=== PATIENT | female | born 1960 | race Caucasian/White ===

== ENCOUNTER 2024-05-31 19:12 | Emergency (ER) | payer MEDICARE, OTHER, SELFPAY ==
[2024-05-31] VITALS (7 sets, daily range): BP systolic 152–183; BP diastolic 92–114; PULSE 87–104; RESP 15–20; TEMP 36.6–37.2; O2SAT 95–99
--- NOTE | ~2024-05-31 | XR_ITS ---
CHEST RADIOGRAPH, PA AND LATERAL CLINICAL HISTORY: SOB . COMPARISON: None available TECHNIQUE: PA and lateral views of the chest. FINDINGS The cardiomediastinal silhouette is unremarkable. The lungs are clear. Visualized osseous structures and soft tissues are unremarkable. IMPRESSION: No focal infiltrate or effusion. Reviewed, dictated and finalized at location A. TING ENGINEER
[2024-05-31 19:58] LABS: Strep Group A RT-PCR NOT DETECTED (Negative)
[2024-05-31 20:10] LABS: Influenza A QL RT-PCR Negative (Negative); Influenza B QL RT-PCR Negative (Negative); RSV RNA, RT-PCR Negative (Negative); SARS-CoV-2 RNA PCR Negative (Negative)
--- NOTE | 2024-05-31 20:55 | ED.SOB ---
HPI - SOB/Dyspnea General Chief Complaint: Shortness of Breath/Dyspnea Stated Complaint: breathing problems Time Seen by Provider: 05/31/24 20:23 History of Present Illness HPI Narrative: 64-year-old with no past medical history presenting to the emergency room with chief complaint of 3-4 days of upper respiratory infection symptoms. She states she started having a sinus congestion that slowly migrated down into her throat and she describes a initial pain with swallowing. She now felt a little short of breath earlier today. Endorses a low-grade fever at home x1 several days ago. Does not take medications but has history of previous upper respiratory infections and bronchitis. Patient states this feels like bronchitis to her. She denies any chest pain shortness a breath at rest. She otherwise appears well and is afebrile here. No nausea or vomiting. No fever, chills, headache, vision changes, difficulty with swallowing. No abdominal pain or discomfort. No recent illnesses or injuries. No new medications. Related Data Allergies Allergy/AdvReac Type Severity Reaction Status Date / Time amoxicillin Allergy Rash Verified 05/31/24 19:14 Review of Systems Review of Systems: As reviewed above in HPI Exam Narrative: GENERAL: [Well-appearing, well-nourished, and in no acute distress.] HEAD: [Normocephalic, atraumatic.] EYES: [PERRLA and EOMI.] ENT: Nares clear, no rhinorrhea or epistaxis. Mucous membranes moist. No posterior or pharyngeal erythema or exudates. Uvula is midline. No tonsillar inflammation. No difficulty swallowing, no lymphadenopathy. NECK: Supple. CHEST: [Clear to auscultation. No respiratory distress.] HEART: [Regular rate and rhythm]. No murmur heard. [Normal peripheral pulses.] ABDOMEN: [Soft, nondistended], [nontender], [No rigidity or guarding] EXTREMITIES: Normal range of motion. [No edema.] SKIN: Warm, dry, no rash. NEURO: [No focal deficits]. Alert and oriented [x3.] PSYCH: [Normal mood and affect.] Course Vital Signs Vital signs: Vital Signs Temperature 36.6 C 05/31/24 19:17 Pulse Rate 104 H 05/31/24 19:17 Respiratory Rate 18 05/31/24 19:17 Blood Pressure 183/114 H 05/31/24 19:17 Pulse Oximetry 97 05/31/24 19:17 Temperature 36.6 C 05/31/24 19:17 Pulse Rate 98 05/31/24 21:01 Respiratory Rate 19 05/31/24 21:01 Blood Pressure 152/92 H 05/31/24 21:01 Pulse Oximetry 99 05/31/24 21:03 Oxygen Delivery Room Air 05/31/24 21:03 MDM - SOB/Dyspnea MDM Narrative Medical decision making narrative: 64-year-old female with no past medical history presenting with 3 days of URI symptoms. She was at another facility earlier today and had COVID fluid RSV swabs which were negative. She presents today with a feeling of sinus congestion and some sore throat. Initially had difficulty swallowing episode that resolved at home. Otherwise appears well not in acute distress. Saturating well on room air. 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 She will take antibiotics if absolutely needed. She endorses a fever at home 1 time several days ago but is afebrile now. Otherwise conversant full sentences, has no posterior erythema or inflammation of the tonsils. Slightly tachycardic on triage vitals. Patient is slightly hypertensive but likely secondary to chronic hypertension as she does not seek medical attention or take medications. Likely unrelated to presentation presently. COVID fluid RSV swabs were obtained negative. Two-view chest x-ray is ordered. Differential diagnosis includes upper respiratory infection versus bacterial versus viral bronchitis versus less likely pharyngitis, epiglottitis. Patient's chest x-rays independent reviewed by myself and interpreted by radiology. I do not appreciate any kind of consolidation, pneumothorax or any hilar lesions. Radiology shows no acute cardiopulmonary process. Patient's symptomatology is likely secondary to bronchitis. Patient states that she has had previous good response to the antibiotic therapy and is requesting this at this time. She was given a dose of azithromycin 500 mg here and sent home with a 250 mg dose for the next 3 days. Patient will follow-up with her primary care provider. Repeat blood pressure and vital signs were all improved. Patient is stable for discharge home at this time. Medical Records Attestation: I reviewed the patient's medical records. Lab Data Attestation: I reviewed the patient's lab results. Labs: Lab Results 05/31/24 Range/Units 19:27 Influenza A (RT-PCR) Negative (Negative) Influenza B (RT-PCR) Negative (Negative) RSV (RT-PCR) Negative (Negative) SARS-CoV-2 RNA (RT-PCR) Negative (Negative) Group A Strep (PCR) Not detected (Negative) Imaging Data Attestation: I personally reviewed and interpreted this imaging study as follows: Radiologist's impression: Impressions Chest X-Ray 05/31/24 21:15 IMPRESSION: No focal infiltrate or effusion. Discharge Plan Discharge Clinical Impression: Bronchitis Patient Disposition: Home, Self-Care Condition: Stable Instructions: Antibiotic Form, Acute Bronchitis (ED) Additional Instructions: We will send you home with a short course of antibiotics for your symptoms. He can also take ldyr-xny-clenonk medications at your local pharmacy. Follow-up with your primary care provider. Prescriptions: New azithromycin [Zithromax] 200 mg/5 mL suspension for reconstitution See Rx Instructions .ROUTE .COMPLEX Qty: 30 0RF Rx Instructions: take 12.5 mL (500 mg) by mouth today (day 1), then 6.25 mL (250 mg) daily for 4 days (days 2-5) Follow-up/Referrals: PHYSICIAN,FARM PRODUCT PURCHASER [Primary Care Provider] - Time of Disposition: 21:26
--- NOTE | 2024-05-31 21:51 | PC.NURSE ---
Called pharmacy for missing medication at this time. no ETA for med but will work on it soon.
[2024-05-31] MEDS: AZITHROMYCIN 200 MG/5 ML SUSPENSION UD 500 MG PO (21:56)
== END 2024-05-31 22:03 | disposition home or self-care (01) ==
PROVIDERS: Emergency Provider Student in an Organized Health Care Education/Training Program
DX: J40 Bronchitis, not specified as acute or chronic (principal); Z20.822 Contact with and (suspected) exposure to COVID-19
CPT/HCPCS: 71046; 87637; 87651; 99284; A9270

== ENCOUNTER 2024-09-05 16:38 | Emergency (ER) | payer MEDICARE, OTHER, SELFPAY ==
--- NOTE | ~2024-09-05 | CT_ITS ---
History: Back pain PROCEDURE: CT lumbar spine without intravenous contrast. COMPARISON: None TECHNIQUE: Multiple contiguous axial images of the lumbar spine were performed without the administration of int ravenous contrast. DLP: 7 3 mGy-cm FINDINGS: Straightening of the normal lordotic curvature of the lumbar spine is identified, possibly muscular i n origin. 18 degrees of levoscoliosis is identified within the lumbar spine. No acute compression fractures are present. Significant facet arthropathy is noted. Degenerative disease is present, with osteophyte formation and disc space narrowing. Vacuum phenomena is present at the level of L3/L4. Hypertrophy of the ligamentum flavum is present at the level of L4/L5 with a broad-based disc protrus ion narrowing the spinal canal. Impression: Degenerative disease, without acute fracture. Reviewed, dictated and finalized at location A. N PERFORMANCE PROFESSOR Impression: Degenerative disease, without acute fracture.
[2024-09-05 16:41] VITALS: BP 172/118; PULSE 101; RESP 18; TEMP 36.8; O2SAT 100
--- OUTSIDE RECORDS SUMMARY | 2024-09-05 16:42 | XMS_ITS | Continuity of Care Document ---
Author Organization [facility] Address [address] [place] [address] Phone Care Team Providers Care Hand Reamer Name Role Phone Roselia Short OD Unavailable Unavailable Allergies, Adverse Reactions, Alerts Substance Reaction Status Criticality amoxicillin Unknown Active No Information PENICILLIN Unknown Active No Information Medications Medication Instructions Dosage Effective Dates (start - stop) Status Comments Maxitrol 3.5 mg/g-10,000 unit/g-0.1 % eye ointment apply small amount to right eye 4 times daily for 10 days then stop - Active TobraDex 0.3 %-0.1 % eye ointment APPLY TO AFFECTED AREA OF RIGHT EYE 4 TIMES DAILY FOR 10 DAYS - Active Procedures Procedure Date Offic/outpt E&m [facility] 3 Advance Directives Directive Yes / No Effective Date File Name No Information Encounters Encounter Description Practice Location Reason(s) For Visit Diagnoses Date Provider Providers Copied on Encounter [facility] [address], [id number], [place] tel:[phone] [facility] No Information 3 Han Veloz. [address], [address], [place], [place], [id number] , [place]. tel:[phone] Offic/outpt E&m [facility] [address], [id number], [place] tel:[phone] [facility] TOBY MAKER c/o redness and irritation (chief complaint) Chalazion right lower eyelid 3 Han Veloz. [address], [address], [place], [place], [id number] , [place]. tel:[phone] Referring Provider: Roselia Rose, [address], [place], [address] . tel:[phone] Family History Family Member Type Diagnosis Age At Onset No Information Payers Payer name Insurance type Covered libertarian ID Adeline cui(s) [place] [employer] [id number] Social History Type Description Quantity Date Captured Comments Alcohol Use Details Unknown Caffeine Use Details Unknown Tobacco Use Status No Information Smoking Status No Information Sex Female Chief Complaint And Reason For Visit No Information Reason For Referral Reason For Referral No Information History Of Present Illness Encounter Date Complaint History Of Prese nt Illness TOBY MAKER c/o redness and irritation Th e 62 year old female presents for evaluation of TOBY MAKER c/o redness and irritation in the right eye. Pt. currently lives in [place] but is currently staying in [place] visiting her daughter. Pt. c/o possible stye OD along with pain, redness and itching in the corner of the right eye. Pt. also c/o a red raised area near the nose. Symptoms began 4-5 weeks ago. Pt. has been using an eye rinse 5 times within the past week to help with her symptoms.* Pt. is an old [facility] patient.* Pt. has been under a lot of stress. Functional Status Date Functional Assessmen t No Information Instructions Date Instruction Additional Infor rodrigo Impression/Plan Assessments Type Assessment Date No Information Patient Care Teams Name Effective Dates (start - stop) Status Members No Information
--- OUTSIDE RECORDS SUMMARY | 2024-09-05 16:42 | XMS_ITS | Clinical Summary ---
Author Organization [address] Address [address] [place] [address] Care Team Providers Care Burglar Alarm Assembler Name Role Phone Unknown, Notinfile Primary Care Provider Unavail able Allergies Active Allergy Reactions Criticality Noted Date Comments Penicillins Anaphylaxis High 01/12/2024 Medications bacitracin 500 unit/gram ointmentIndicat ions:Cellulitis of left lower extremity,Bug bite with infection, initial encounter Apply topically 2 (two) times a day 15 g 1 Active Active Problems No known active problems Social History Tobacco Use Types Packs/Day Years Used Date Smoking Tobacco: Never Passive Smoke Exposure: Never Smokeless Tobacco: Never Tobacco Cessation:Counseling Given: Not Answered Personal Safety Answer Date Recorded Have you ever been in or are you currently in a harmful physical or emotional relationship or is someone making you feel afraid or unsafe? Denies 05/31/2024 Comments No Sex and Gender Information Value Date Recorded Sex Assigned at Not on file Legal Sex Female 2:33 PM CDT Gender Identity Not on file Sexual Orientation Not on file Obstetrics History Last Filed Vital Signs Vital Sign Reading Time Taken Comments Blood Pressure 178/114 05/31/2024 1:03 PM JEWELRY DESIGNER Pulse 122 05/31/2024 1:03 PM JEWELRY DESIGNER Temperature 37.6 C (99.7 F) 05/31/2024 1:03 PM JEWELRY DESIGNER Respiratory Rate 16 05/31/2024 1:03 PM JEWELRY DESIGNER Oxygen Saturation 96% 05/31/2024 1:03 PM JEWELRY DESIGNER Inhaled Oxygen Concentration - - Weight 83.9 kg (185 lb) 05/31/2024 9:17 AM JEWELRY DESIGNER Height 175.3 cm (5' 9 ) 05/31/2024 9:17 AM JEWELRY DESIGNER Body Mass Index 27.32 05/31/2024 9:17 AM JEWELRY DESIGNER Plan of Treatment Health Maintenance Due Date Last Done Comments Breast Cancer Screening-Mammogram 1959 Cervical Cancer Screening 1959 Colon Cancer Screening-Colonoscopy 1959 Depression Screening 1959 Fall Risk Assessment 1959 Hepatitis C Screening 1959 Osteoporosis Screening-Bone Density Scan 1959 DTaP/Tdap/Td Vaccine (1 - Tdap) 1970 Hepatitis B Screening 1977 Zoster Vaccine (1 of 2) 2009 Pneumococcal vaccine 65+ (1 of 1 - PCV) 01/26/2024 Well Visit 65+ 01/26/2024 Influenza Vaccine (#1) 2024 Insurance [facility] MEDICARE Care Teams Burglar Alarm Assembler Relationship Specialty Start Date End Date Unknown, Notinfile PCP - General 01/12/24
--- OUTSIDE RECORDS SUMMARY | 2024-09-05 16:42 | XMS_ITS | Referral Summary ---
Author Organization [address] Address [address] [place] [id number] Care Team Providers Care Utility Supervisor Boat [employer] Name Role Phone Unknown, Notinfile Primary Care [...] on file Sexual Orientation Not on file Last Filed Vital Signs Vital Sign Reading Time Taken Comments Blood Pressure 178/114 05/31/2024 1:03 PM CENTRAL CONTROL ROOM OPERATOR Pulse 122 05/31/2024 1:03 PM CENTRAL CONTROL ROOM OPERATOR Temperature 37.6 C (99.7 F) 05/31/2024 1:03 PM CENTRAL CONTROL ROOM OPERATOR Respiratory Rate 16 05/31/2024 1:03 PM CENTRAL CONTROL ROOM OPERATOR Oxygen Saturation 96% 05/31/2024 1:03 PM CENTRAL CONTROL ROOM OPERATOR Inhaled Oxygen Concentration - - Weight 83.9 kg (185 lb) 05/31/2024 9:17 AM CENTRAL CONTROL ROOM OPERATOR Height 175.3 cm (5' 9 ) 05/31/2024 9:17 AM CENTRAL CONTROL ROOM OPERATOR Body Mass Index 27.32 05/31/2024 9:17 AM CENTRAL CONTROL ROOM OPERATOR Plan of Treatment Not on file Insurance [employer] MEDICARE Care Teams Utility Supervisor Boat [employer] Plant Relationship Specialty Start Date End Date Unknown, Notinfile PCP - General 01/12/24
--- OUTSIDE RECORDS SUMMARY | 2024-09-05 16:42 | XMS_ITS | Patient Health Record ---
Author Organization [facility] Address [address] [place] [address] Care Team Providers Care Information Systems Director Name Role Phone Valente Mitchell MD Primary Care Provider ALLERGIES Allergen (clinical drug ingredient) Drug/Non Drug Allergy documented on EMR Reaction Allergy Type Onset Date Status Antibiotics (uncoded) Unknown Allergy Active REASON FOR REFERRAL No Information IMMUNIZATIONS Vaccine Route Administration Date Status Comme nts Influenza Unknown 12/15/2021 Refused pneumoccocal Unknown 12/15/2021 Refused SOCIAL HISTORY Tobacco Use: Social History Observation Description Date Details (start date - stop date) Never Smoker NA - NA Sex Assigned At : Social History Observation Description Sex Assigned At Unknown Tobacco Use: Question Answer Notes Patient is a: nonsmoker Alcohol screening: Question Answer Notes Did you have a drink containing alcohol in the p ast year? 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
--- NOTE | 2024-09-05 17:29 | ED.BACK ---
HPI - Back Pain/Injury General Chief Complaint: Back Pain/Injury <AISHA Estrella Last Filed: 09/05/24 17:39> Stated Complaint: back pain <AISHA Estrella Last Filed: 09/05/24 17:39> Time Seen by Provider: 09/05/24 17:30 <AISHA Estrella Last Filed: 09/05/24 17:39> Focused HPI: Patient is a 64 y/o female who presents to the ED with c/o lower back pain. Patient reports having pain throughout her right lower back/ buttock, radiating down her right lower extremity to her right knee, intermittently for the past 2 weeks. States pain has been intermittent, but progressively worsening. Today, had trouble walking due to the pain which prompted her presentation. She has previous Hx of sciatica, but states it has never gone on this long. Has been trying stretches w/o improvement. Took 2 ibuprofen today which she states made her pain worse. Patient does not like taking drugs because it dulls the mind. Denies lower extremity weakness, numbness, saddle anesthesia, bowel or bladder incontinence, injury. GENERAL: Well-appearing, well-nourished, and in no acute distress. HEAD: Normocephalic, atraumatic. CHEST: Clear to auscultation. ?No respiratory distress. HEART: Regular rate and rhythm.? MSK: No significant midline lumbar spinal tenderness. No palpable bony deformities or step-offs. TTP in R SI region, reproducing pain. +SLR on R. NEURO: ?Alert and oriented x3. Patient screened in triage and initial orders placed.? ?Additional care and disposition to be based upon?diagnostic testing and treatment. <AISHA Estrella Last Filed: 09/05/24 17:39> Source: patient <AISHA Estrella Last Filed: 09/05/24 17:39> Mode of arrival: ambulatory <AISHA Estrella Last Filed: 09/05/24 17:39> Limitations: no limitations <AISHA Estrella Last Filed: 09/05/24 17:39> Related Data Allergies/Adverse Reactions: Allergies Allergy/AdvReac Type Severity Reaction Status Date / Time amoxicillin Allergy Rash Verified 05/31/24 19:14 <Tika Oliver PA-C - Last Filed: 09/05/24 17:39> Review of Systems Review of Systems: CONSTITUTIONAL: Denies fever SKIN: Denies rash MUSCULOSKELETAL: Reports back pain, joint pain, and myalgia. NEUROLOGIC: Denies numbness, or weakness. <Zakiya Hutton PA-C - Last Filed: 09/05/24 20:19> All systems reviewed & are unremarkable except as noted in HPI and below <Zakiya Hutton PA-C - Last Filed: 09/05/24 20:19> PMFSH Past Medical History Medical History: Medical History (Updated 09/05/24 @ 20:13 by Zakiya Hutton PA-C) History of hypertension <Tika Oliver PA-C - Last Filed: 09/05/24 17:39> Social History Social History: Social History (Updated 09/05/24 @ 20:13 by Zakiya Hutton PA-C) Smoking status: Never smoker <Tika Oliver PA-C - Last Filed: 09/05/24 17:39> Exam Narrative: GENERAL: Well-appearing, well-nourished, and in no acute distress. HEAD: Normocephalic, atraumatic. EYES: EOMI. CHEST: Clear to auscultation. No respiratory distress. No wheezes rales or rhonchi HEART: Regular rate and rhythm. No murmur heard. Normal peripheral pulses. EXTREMITIES: Normal range of motion. No edema. Strength equal in bilateral lower extremities (5/5). Normal DP pulses SKIN: Warm, dry, no rash. NEURO: No focal deficits. Alert and oriented x3. PSYCH: Normal mood and affect <Zakiya Hutton PA-C - Last Filed: 09/05/24 20:19> Course Course Emergency Course: Patient and family updated on workup and agree with plan of care <Zakiya Hutton PA-C - Last Filed: 09/05/24 20:19> Vital Signs Vital signs: Vital Signs Temperature 98.2 F 09/05/24 16:41 Pulse Rate 101 H 09/05/24 16:41 Respiratory Rate 18 09/05/24 16:41 Blood Pressure 172/118 H 09/05/24 16:41 Pulse Oximetry 100 09/05/24 16:41 Temperature 98.2 F 09/05/24 16:41 Pulse Rate 101 H 09/05/24 16:41 Respiratory Rate 18 09/05/24 16:41 Blood Pressure 172/118 H 09/05/24 16:41 Pulse Oximetry 100 09/05/24 16:41 <Tika Oliver PA-C - Last Filed: 09/05/24 17:39> Vital Signs Temperature 98.2 F 09/05/24 16:41 Pulse Rate 101 H 09/05/24 16:41 Respiratory Rate 18 09/05/24 16:41 Blood Pressure 172/118 H 09/05/24 16:41 Pulse Oximetry 100 09/05/24 16:41 Temperature 98.2 F 09/05/24 16:41 Pulse Rate 101 H 09/05/24 16:41 Respiratory Rate 18 09/05/24 16:41 Blood Pressure 172/118 H 09/05/24 16:41 Pulse Oximetry 100 09/05/24 16:41 <AISHA Dias Last Filed: 09/05/24 20:19> MDM - Back Pain/Injury MDM Narrative Medical decision making narrative: MSE by FRANCI in triage. <Tika Oliver PA-C - Last Filed: 09/05/24 17:39> MSE by FRANCI in triage. Patient presents to the ER for right sided low back pain. No recent injury or trauma. She is neurovascularly intact. CT lumbar spine shows degenerative disease without acute findings. Patient was updated on her workup and agrees with plan of care. She is to follow up with primary provider. She was given warnings to return to the ER Patient incidentally hypertensive. Reports history of white coat hypertension. She is not symptomatic. Instructed to continue to monitor and follow up with her PCP <AISHA Dias Last Filed: 09/05/24 20:19> Differential Diagnosis Differential diagnosis: Likely sciatica and strain of lumbar region <AISHA Dias Last Filed: 09/05/24 20:19> Imaging Data Radiologist's impression: ITS Impressions Lumbar Spine CT 09/05/24 19:24 Impression: Degenerative disease, without acute fracture. <Zakiya Hutton PA-C - Last Filed: 09/05/24 20:19> Critical Care Time Critical Care Time Critical Care Time: No <Zakiya Hutton PA-C - Last Filed: 09/05/24 20:19> Discharge Plan Discharge Clinical Impression: Elevated blood pressure reading Sciatica Qualifiers: Laterality: right Qualified Code(s): M54.31 - Sciatica, right side <Tika Oliver PA-C - Last Filed: 09/05/24 17:39> Patient Disposition: Home, Self-Care <AISHA Estrella Last Filed: 09/05/24 17:39> Condition: Stable <AISHA Estrella Last Filed: 09/05/24 17:39> Instructions: Sciatica (ED), Hypertension (ED), Back Pain (ED) <Tika Oliver PA-C - Last Filed: 09/05/24 17:39> Additional Instructions: Return to the ER if you experience weakness, numbness, bowel/bladder incontinence, or any other symptoms that are concerning to you Rest, use ice/heat, take anti-inflammatories (Aleve, Ibuprofen, Naproxen, etc) or Tylenol as needed for pain as well as muscle relaxer (Flexeril) as needed for pain. Muscle relaxers can make you drowsy, do not drive if you take this Follow up with your primary care doctor <Tika Oliver PA-C - Last Filed: 09/05/24 17:39> Patient Language: Khmer <AISHA Estrella Last Filed: 09/05/24 17:39> Prescriptions: New cyclobenzaprine 10 mg tablet 10 mg PO TID PRN (Reason: muscle spasm) Qty: 14 0RF No Action azithromycin [Zithromax] 200 mg/5 mL suspension for reconstitution See Rx Instructions .ROUTE .COMPLEX Qty: 30 0RF Rx Instructions: take 12.5 mL (500 mg) by mouth today (day 1), then 6.25 mL (250 mg) daily for 4 days (days 2-5) <Tika Oliver PA-C - Last Filed: 09/05/24 17:39> Follow-up/Referrals: PHYSICIAN,EMERGENCY DEPARTMENT COORDINATOR [Primary Care Provider] - <Tika Oliver PA-C - Last Filed: 09/05/24 17:39>
--- OUTSIDE RECORDS SUMMARY | 2024-09-05 18:07 | XMS_ITS | Continuity of Care Document ---
Author Organization [facility] Address [address] [place] [address] Phone Care Team Providers Care Adult And Pediatric Neurologist Name Role Phone Roselia Short OD Unavailable [...] - Active Procedures Procedure Date Offic/outpt E&m [facility] 3 Advance Directives Directive Yes / No Effective Date File Name No Information Encounters Encounter Description Practice Location Reason(s) For Visit Diagnoses Date Provider Providers Copied on Encounter [facility] [address], [id number], [place] tel:[phone] [facility] No Information 3 Han Veloz. [address] [facility] [address], [address], [place], [place], [id number] , [place]. tel:[phone] Offic/outpt E&m [facility] [address], [id number], [place] tel:[phone] [facility] HAND SCRAPER c/o redness and irritation (chief complaint) Chalazion right lower eyelid 3 Han Veloz. [address], [address], [place], [place], [id number] , [place]. tel:[phone] Referring Provider: Roselia Rose, [address], [place], [address] . tel:[phone] Family History Family Member Type Diagnosis Age At Onset No Information Payers Payer name Insurance type Covered green party ID Adeline cui(s) [place] [employer] [id number] Social History Type Description Quantity Date Captured Comments Alcohol Use Details Unknown Caffeine Use Details Unknown Tobacco Use Status No Information Smoking Status No Information Sex Female Chief Complaint And Reason For Visit No Information Reason For Referral Reason For Referral No Information History Of Present Illness Encounter Date Complaint History Of Prese nt Illness HAND SCRAPER c/o redness and irritation Th e 62 year old female presents for evaluation of HAND SCRAPER c/o redness and irritation in the right eye. Pt. currently lives in [place] but is currently staying in [place] visiting her daughter. Pt. c/o possible stye [...]
--- OUTSIDE RECORDS SUMMARY | 2024-09-05 18:07 | XMS_ITS | Continuity of Care Document ---
[facility] [place] Address [address] [facility] [address] [place] [address] Care Team Providers Care Beach Patrol Lieutenant Name Role Phone Zain Rogers DO Unavailable Unavailable Allergies, Adverse Reactions, Alerts Substance Reaction Status Criticality No Known Allergies Active No Inform ation Procedures Procedure Date Offic/outpt E&m Estab Low-mod 4 Offic/outpt E&m [facility] 45 3 Apr Advance Directives Directive Yes / No Effective Date File Name No Information Encounters Encounter Description Practice Location Reason(s) For Visit Diagnoses Date Provider Providers Copied on Encounter Offic/outpt E&m [facility] [address], [id number], [facility] Follow Up of floaters (chief complaint) Posterior vitreous detachment of left eyeEpiretinal membrane (ERM) of left eyeAge-related nuclear cataract, left eye 4 Ken Wellington . [address] [place] [address], [address], [id number] , . tel:[phone] Referring Provider: Zain Rogers DO [address] [place] [address] [address], [place], [address] . tel:[phone] Offic/outpt E&m [facility] [address], [id number], [facility] posterior vitreous detachment (chief complaint) Age-related nuclear cataract, bilateralEpireti nal membrane (ERM), bilateralPosteri or vitreous detachment, bilateralPaving stone retinal degeneration, bilateral 3 Ken Wellington . [address], [place], [place], [id number] , . tel:[phone] Referring Provider: Zain Ken FIGUEROA, [address], [place], [address] . tel:[phone] Family History Family Member Type Diagnosis Age At Onset Problem No family history of Macular degeneration Problem No family history of Glaucom a Payers Payer name Insurance type Covered green party ID Adeline cui(sSurinder Garcia [id number] Social History Type Description Quantity Date Captured Comments Alcohol Use Details No Caffeine Use Details Unknown Tobacco Use Status Current non-smoker Smoking Status Never smoker Non-Smoking Tobacco Use Details : No Details Available : No Details Available Sex Female Chief Complaint And Reason For Visit From encounter dated '07/28/2023 08:35'. Follow Up of floaters (chief complaint). Description: Patient presents for a 1 month follow up evaluation of floaters in the left eye. Patient states they have been improved and do not notice the black dots as much anymore. Patient denies flashes or veil. Reason For Referral Reason For Referral No Information History Of Present Illness Encounter Date Complaint History Of Prese nt Illness Follow Up of floaters Patient pr esents for a 1 month follow up evaluation of floaters in the left eye. Patient states they have been improved and do not notice the black dots as much anymore. Patient denies flashes or veil. posterior vitreous detachment Th e 63 year old female presents for evaluation of posterior vitreous detachment in the left eye. Patient reports she had a new onset of black floaters in the left eye one week ago and was diagnosed with posterior vitreous detachment. Patient denies any jordan or discomfort. Patient reports flashes of light 3 days ago. Patient denies any curtains or veils over vision. Functional Status Date Functional Assessmen t No Information Instructions Date Instruction Additional Infor rodrigo Return in 6 months w [facility] for Complete Related to Age-related nuclear cataract, left eye Impression/Plan Related to Poste rior vitreous detachment of left eye Impression/Plan Related to Age-r elated nuclear cataract, left eye Impression/Plan Related to Epire tinal membrane (ERM) of left eye Return in 1 month wi [facility] for PVD Check/ No OCT/Dilate OS Only Related to Posterior vitreous detachment, bilateral Impression/Plan Related to Poste rior vitreous detachment, bilateral Impression/Plan Related to Pavin g stone retinal degeneration, bilateral Impression/Plan Related to Age-r elated nuclear cataract, bilateral Impression/Plan Related to Epire tinal membrane (ERM), bilateral Assessments Type Assessment Date assessment Posterior vitreous detachment of left eye impression Status: improving.No Holes/ No T ears assessment Epiretinal membrane (ERM) of lef t eye impression Status: Asymptomatic assessment Age-related nuclear cataract, le ft eye impression Status: Asymptomatic Patient Care Teams Name Effective Dates (start - stop) Status Members No Information
--- OUTSIDE RECORDS SUMMARY | 2024-09-05 18:07 | XMS_ITS | Referral Summary ---
Author Organization [address] Address [address] [place] [address] Care Team Providers Care Saw Man Name Role Phone Unknown, Notinfile Primary Care [...] Comments Blood Pressure 178/114 05/31/2024 1:03 PM TEACHER ASST Pulse 122 05/31/2024 1:03 PM TEACHER ASST Temperature 37.6 C (99.7 F) 05/31/2024 1:03 PM TEACHER ASST Respiratory Rate 16 05/31/2024 1:03 PM TEACHER ASST Oxygen Saturation 96% 05/31/2024 1:03 PM TEACHER ASST Inhaled Oxygen Concentration - - Weight 83.9 kg (185 lb) 05/31/2024 9:17 AM TEACHER ASST Height 175.3 cm (5' 9 ) 05/31/2024 9:17 AM TEACHER ASST Body Mass Index 27.32 05/31/2024 9:17 AM TEACHER ASST Plan of Treatment Not on file Insurance [employer] MEDICARE Care Teams Saw Man Relationship Specialty Start Date End Date Unknown, Notinfile PCP - General 01/12/24
--- OUTSIDE RECORDS SUMMARY | 2024-09-05 18:07 | XMS_ITS | Clinical Summary ---
Author Organization [address] Address [address] [place] [address] Care Team Providers Care Cotton Gin Yard Supervisor Name Role Phone Unknown, Notinfile Primary Care [...] Comments Blood Pressure 178/114 05/31/2024 1:03 PM ANALYTICAL CLERK Pulse 122 05/31/2024 1:03 PM ANALYTICAL CLERK Temperature 37.6 C (99.7 F) 05/31/2024 1:03 PM ANALYTICAL CLERK Respiratory Rate 16 05/31/2024 1:03 PM ANALYTICAL CLERK Oxygen Saturation 96% 05/31/2024 1:03 PM ANALYTICAL CLERK Inhaled Oxygen Concentration - - Weight 83.9 kg (185 lb) 05/31/2024 9:17 AM ANALYTICAL CLERK Height 175.3 cm (5' 9 ) 05/31/2024 9:17 AM ANALYTICAL CLERK Body Mass Index 27.32 05/31/2024 9:17 AM ANALYTICAL CLERK Plan of Treatment Health Maintenance Due Date [...] 65+ 01/26/2024 Influenza Vaccine (#1) 2024 Insurance [employer] MEDICARE Care Teams Cotton Gin Yard Supervisor Relationship Specialty Start Date End Date Unknown, Notinfile PCP - General 01/12/24
[2024-09-05 20:13] VITALS: BP 168/89
== END 2024-09-05 20:20 | disposition home or self-care (01) ==
PROVIDERS: Emergency Provider Physician Assistant
DX: M54.41 Lumbago with sciatica, right side (principal); R03.0 Elevated blood-pressure reading, without diagnosis of hypertension; I10 Essential (primary) hypertension
CPT/HCPCS: 72131; 99284

== ENCOUNTER 2025-02-06 07:33 | Emergency (ER) | payer MEDICARE, OTHER, SELFPAY ==
--- NOTE | ~2025-02-06 | XR_ITS ---
XR wrist LT min 3V 02/06/2025 08:28 Indication: Left wrist pain Procedure: 4 views left wrist Comparison: No prior studies for comparison. Findings: There is a comminuted displaced intra-articular fracture distal aspect of the radius. There is an ulnar styloid avulsion fracture. Mild polyarticular osteoarthritis. Impression: 1: Comminuted displaced intra-articular fracture distal aspect of the radius. 2: Ulnar styloid avulsion fracture. Reviewed, dictated and finalized at location B. Impression: 1: Comminuted displaced intra-articular fracture distal aspect of the radius. 2: Ulnar styloid avulsion fracture.
--- OUTSIDE RECORDS SUMMARY | 2025-02-06 07:36 | XMS_ITS | Referral Summary ---
Author Organization [address] Address [address] [place] [address] Care Team Providers Care Reimbursement Analyst Name Role Phone Toya Jin MD Primary Care Provider Allergies Active Allergy Reactions Criticality Noted Date Comments Penicillins Anaphylaxis High 01/12/2024 Medications lisinopriL (PRINIVIL,ZESTRI L) 5 mg tablet Take 1 tablet (5 mg total) by mouth daily 09/14/2024 Active Active Problems Problem Noted Date Diagnosed Date Other chronic pain 10/02/2024 Lumbar radiculopathy 10/02/2024 Sacroiliitis 10/02/2024 Strain of muscle of right hip 11/18/2021 Social History Tobacco Use Types Packs/Day Years Used Date Smoking Tobacco: Never Passive Smoke Exposure: Never Smokeless Tobacco: Never Tobacco Cessation:Counseling Given: Not Answered AUDIT-C Answer Date Recorded Q1: How often do you have a drink containing alcohol? Never 10/02/2024 Q2: How many drinks containi ng alcohol do you have on a typical day when you are drinking? Patient does not drink Q3: How often do you have si x or more drinks on one occasion? Never 10/02/2024 Personal Safety Answer Date Recorded Have you [...] Sign Reading Time Taken Comments Blood Pressure 174/122 10/16/2024 7:13 AM CDT Pulse 84 10/16/2024 7:13 AM CDT Temperature 37 C (98.6 F) 10/02/2024 8:15 AM CDT Respiratory Rate 18 10/16/2024 7:13 AM CDT Oxygen Saturation 99% 10/16/2024 7:13 AM CDT Inhaled Oxygen Concentration - - Weight 89.8 kg (197 lb 15.6 oz) 10/12/2024 1:11 PM CDT Height 175.3 cm (5' 9.02) 10/12/2024 1:11 PM CD T Body Mass Index 29.22 10/12/2024 1:11 PM CDT Plan of Treatment Not on file Insurance [employer] MEDICARE MEDICARE FOR LIFE Care Teams Reimbursement Analyst Relationship Specialty Start Date End Date Toya Jin MD [address] [id number] PCP - General Internal Medicine 10/02/24
--- OUTSIDE RECORDS SUMMARY | 2025-02-06 07:36 | XMS_ITS | Clinical Summary ---
Author Organization [address] Address [address] [place] [address] Care Team Providers Care Steel Layout Worker Name Role Phone Toya Jin MD Primary Care Provider Allergies Active Allergy Reactions Criticality Noted Date Comments Penicillins Anaphylaxis High 01/12/2024 Medications lisinopriL (PRINIVIL,ZESTRI L) 5 mg tablet Take 1 tablet (5 mg total) by mouth daily 09/14/2024 Active Active Problems Problem Noted Date Diagnosed Date Other chronic pain 10/02/2024 Lumbar radiculopathy 10/02/2024 Sacroiliitis 10/02/2024 Strain of muscle of right hip 11/18/2021 Medical History Medical History Date Comments Hypertension Social History Tobacco Use Types Packs/Day Years [...] 10/12/2024 1:11 PM CDT Plan of Treatment Health Maintenance Due Date Last Done Comments Breast Cancer Screening-Mammogram 1959 Colon Cancer Screening-Colonoscopy 1959 Depression Screening 1959 Hepatitis C Screening 1959 Osteoporosis Screening-Bone Density Scan 1959 DTaP/Tdap/Td Vaccine (1 - Tdap) 1970 Hepatitis B Screening 1977 Pneumococcal vaccine 65+ (1 of 1 - PCV) 2009 Zoster Vaccine (1 of 2) 2009 Well Visit 65+ 01/26/2024 Influenza Vaccine (#1) 2025 Fall Risk Assessment 10/02/2025 10/02/2024 Insurance [employer] MEDICARE MEDICARE [facility] Care Teams Steel Layout Worker Relationship Specialty Start Date End Date Toya Jin MD [address] [place] [address] PCP - General Internal Medicine 10/02/24
--- OUTSIDE RECORDS SUMMARY | 2025-02-06 07:36 | XMS_ITS | Continuity of Care Document ---
[facility] Address [address] [facility] [address] [place] [address] Care Team Providers Care Dump Truck Driver Off Highway Name Role Phone Zain Rogers DO Unavailable [...] Copied on Encounter Offic/outpt E&m Estab Low-mod [address], [id number], [facility] Follow Up of floaters (chief complaint) Posterior vitreous detachment of left eyeEpiretinal membrane (ERM) of left eyeAge-related nuclear cataract, left eye 4 Ken Wellington . [address] [place] [address], [address], [id number] , . tel:[phone] Referring Provider: Zain Rogers DO [address] [place] [address], [place], [address] . tel:[phone] Offic/outpt E&m [place] [facility] [address], [id number], [facility] posterior vitreous detachment (chief complaint) Age-related nuclear cataract, bilateralEpireti nal membrane (ERM), bilateralPosteri or vitreous detachment, bilateralPaving stone retinal degeneration, bilateral 3 Ken Wellington . [address], [place], [place], [id number] , . tel:[phone] Referring Provider: [facility] Ken FIGUEROA, [address], [place], [address] . tel:[phone] Family History Family Member Type Diagnosis Age At Onset Problem No family history of Macular degeneration Problem No family history of Glaucom a Payers Payer name Insurance type Covered democrat ID Adeline cui(s) Foster Estrada [facility] [id number] Social History Type Description Quantity Date Captured [...] Infor rodrigo Return in 6 months w ith [facility] for Complete Related to Age-related nuclear cataract, left eye Impression/Plan Related to Poste rior vitreous detachment of left eye Impression/Plan Related to Age-r elated nuclear cataract, left eye Impression/Plan Related to Epire tinal membrane (ERM) of left eye Return in 1 month wi [facility] for PVD Check/ No OCT/Dilate OS Only [...]
--- OUTSIDE RECORDS SUMMARY | 2025-02-06 07:36 | XMS_ITS | Continuity of Care Document ---
Author Organization [facility] Address [address] [facility] [address] [place] [address] Phone Care Team Providers Care Environmental Scientists Name Role Phone Roselia Short OD Unavailable [...] - Active Procedures Procedure Date Offic/outpt E&m [facility] 3 Advance Directives Directive Yes / No Effective Date File Name No Information Encounters Encounter Description Practice Location Reason(s) For Visit Diagnoses Date Provider Providers Copied on Encounter [facility] [address], [id number], [place] tel:[phone] [facility] No Information 3 Han Veloz. [address] [facility], [address], [place], [place], [id number] , [place]. tel:[phone] Offic/outpt E&m [facility] [address], [id number], [place] tel:[phone] [facility] MUSIC WORKER c/o redness and irritation (chief complaint) Chalazion right lower eyelid 3 Han Veloz. [address] [facility], [address], [place], [place], [id number] , [place]. tel:[phone] Referring Provider: Roselia Rose, [address] [facility] [address], [place], [address] . tel:[phone] Family History Family Member Type Diagnosis Age At Onset No Information Payers Payer name Insurance type Covered green party ID Adeline cui(s) [place] [employer] [id number] Social History Type Description Quantity Date Captured Comments Alcohol Use Details Unknown Caffeine Use Details Unknown Tobacco Use Status No Information Smoking Status No Information Sex Female Chief Complaint And Reason For Visit No Information Reason For Referral Reason For Referral No Information History Of Present Illness Encounter Date Complaint History Of Prese nt Illness MUSIC WORKER c/o redness and irritation Th e 62 year old female presents for evaluation of MUSIC WORKER c/o redness and irritation in the right eye. Pt. currently lives in [place] but is currently staying in [place] visiting her daughter. Pt. c/o possible stye [...]
[2025-02-06 07:38] VITALS: PULSE 101; RESP 26; TEMP 36.3; O2SAT 99
[2025-02-06 07:45] VITALS: BP 201/104; PULSE 101; RESP 16; O2SAT 98
--- NOTE | 2025-02-06 08:27 | ED.FALL ---
HPI - Fall General Chief Complaint: Fall Stated Complaint: FELL L WRIST INJURY Time Seen by Provider: 02/06/25 08:20 Source: patient Limitations: no limitations History of Present Illness HPI Narrative: Patient missed step in her garage and fell landed on the left wrist, denies other injuries. Patient drove herself to the emergency room. Patient does not take medicine at home, she is telling me that she depends on prayes She declined to take any pain medicine in the ED Related Data Allergies Allergy/AdvReac Type Severity Reaction Status Date / Time amoxicillin Allergy Rash Verified 02/06/25 07:46 Review of Systems Review of Systems: All systems reviewed & are unremarkable except as noted in HPI and below PMFSH Past Medical History Medical History History of hypertension Social History Social History Smoking status: Never smoker Exam Narrative: General appearance: Well-developed, well-nourished Skin: Normal color Head: Normocephalic, nontraumatic Eyes: Clear conjunctiva ENT: Oropharynx normal, ears normal, nose normal Neck: Supple, nontender Chest and respiratory: Airway patent, no respiratory distress, no accessory muscle use Heart: Regular rate/rhythm Abdomen: Soft, nontender, no organomegaly, quiet bowel sounds Vascular: Normal peripheral pulses, normal capillary refill. Musculoskeletal: Normal range of motion, nontender back Neurologic: Alert and oriented ?3, DAIRY EQUIPMENT MECHANIC is normal as tested, no gross motor deficit Course Consultations Consultation #1: dr roth Do not do closed reduction, splint, outpatient follow-up Date: 02/06/25 Time: 09:15 Vital Signs Vital signs: Vital Signs Temperature 36.3 C L 02/06/25 07:38 Pulse Rate 101 H 02/06/25 07:38 Respiratory Rate 26 H 02/06/25 07:38 Pulse Oximetry 99 02/06/25 07:38 Temperature 36.3 C L 02/06/25 07:38 Pulse Rate 85 02/06/25 08:36 Respiratory Rate 20 02/06/25 08:36 Blood Pressure 183/99 H 02/06/25 08:36 Pulse Oximetry 97 02/06/25 08:36 MDM - Fall MDM Narrative Medical decision making narrative: Left wrist fracture, no closed reduction, discussed with the orthopedic doctor Sandra Patient blood pressure is elevated which could be secondary to essential hypertension or secondary to pain from broken rest. Patient declined any pain medication in the ED, patient was notified to follow-up with her family physician in the next few days to make sure that her blood pressure is secondary to pain and the possibility of antihypertensive medication. Patient is telling me that she will not take any medication and she depends on praying. Differential Diagnosis Differential diagnosis: Likely other (Wrist fracture, sprain, strain, contusion) Imaging Data Radiologist's impression: Impressions Wrist X-Ray 02/06/25 08:41 Impression: 1: Comminuted displaced intra-articular fracture distal aspect of the radius. 2: Ulnar styloid avulsion fracture. Discharge Plan Discharge Clinical Impression: Fracture of left wrist Patient Disposition: Home Condition: Stable Instructions: Wrist Fracture in Adults (ED) Additional Instructions: Return if symptoms are worsening , call dr roth for appointment, take ibuprofen as as needed for aches and pain, continue home medications. Patient Language: Moldovan Prescriptions: New hydrocodone-acetaminophen 5-325 mg tablet 1 tablet PO Q4H Qty: 20 0RF No Action azithromycin [Zithromax] 200 mg/5 mL suspension for reconstitution See Rx Instructions .ROUTE .COMPLEX Qty: 30 0RF Rx Instructions: take 12.5 mL (500 mg) by mouth today (day 1), then 6.25 mL (250 mg) daily for 4 days (days 2-5) cyclobenzaprine 10 mg tablet 10 mg PO TID PRN (Reason: muscle spasm) Qty: 14 0RF Follow-up/Referrals: PHYSICIAN NOT ON STAFF,NONSTAFF [Non-Staff] - Adriel Roth MD [Physician] - 02/08/25
[2025-02-06 08:36] VITALS: BP 183/99; PULSE 85; RESP 20; O2SAT 97
--- OUTSIDE RECORDS SUMMARY | 2025-02-06 08:56 | XMS_ITS | Referral Summary ---
Author Organization [address] Address [address] [place] [address] Care Team Providers Care Junior Designer Name Role Phone Toya Jin MD Primary [...] Plan of Treatment Not on file Insurance [employer] Credit Exchange MEDICARE MEDICARE FOR LIFE Care Teams Junior Designer Relationship Specialty Start Date End Date Toya Jin MD [address] [address] PCP - General Internal Medicine 10/02/24
--- OUTSIDE RECORDS SUMMARY | 2025-02-06 08:56 | XMS_ITS | Clinical Summary ---
Author Organization [address] Address [address] [place] [address] Care Team Providers Care Cinder Pit Worker Name Role Phone Toya Jin MD [...] 2025 Fall Risk Assessment 10/02/2025 10/02/2024 Insurance [employer] MEDICARE [facility] Care Teams Cinder Pit Worker Relationship Specialty Start Date End Date Toya Jin MD [address] [place] [address] PCP - General Internal Medicine 10/02/24
--- OUTSIDE RECORDS SUMMARY | 2025-02-06 08:56 | XMS_ITS | Continuity of Care Document ---
Author Organization [facility] Address [address] [facility] [address] [place] [address] Care Team Providers Care Spine Surgeon Name Role Phone Zain Rogers DO Unavailable [...] Copied on Encounter Offic/outpt E&m Estab Low-mod [address], [id number], [facility] Follow Up of floaters (chief complaint) Posterior vitreous detachment of left eyeEpiretinal membrane (ERM) of left eyeAge-related nuclear cataract, left eye 4 Ken Wellington . [address] [place] [address], [address], [id number] , . tel:[phone] Referring Provider: Zain Rogers DO [address] [place] [address] [address], [place], [address] . tel:[phone] Offic/outpt E&m [place] [address], [id number], [facility] posterior vitreous detachment (chief complaint) Age-related nuclear cataract, bilateralEpireti nal membrane (ERM), bilateralPosteri or vitreous detachment, bilateralPaving stone retinal degeneration, bilateral 3 Ken Wellington . [address], [place], [place], [id number] , . tel:[phone] Referring Provider: [place] Ken FIGUEROA, [address], [place], [address] . tel:[phone] Family History Family Member Type Diagnosis Age At Onset Problem No family history of Macular degeneration Problem No family history of [place] a Payers Payer name Insurance type Covered constitution party ID Adeline cui(s) Foster Estrada [facility] [id number] Social History Type Description Quantity Date Captured [...] rodrigo Return in 6 months w ith [facility] for Complete Related to Age-related nuclear cataract, left eye Impression/Plan Related to Poste rior vitreous detachment of left eye Impression/Plan Related to Age-r elated nuclear cataract, left eye Impression/Plan Related to Epire tinal membrane (ERM) of left eye Return in 1 month wi [facility] for PVD Check/ No OCT/Dilate OS [...]
--- OUTSIDE RECORDS SUMMARY | 2025-02-06 08:56 | XMS_ITS | Continuity of Care Document ---
Author Organization [facility] Address [address] [facility] [address] [place] [address] Phone Care Team Providers Care Mines Inspector Name Role Phone Roselia Short OD Unavailable [...] - Active Procedures Procedure Date Offic/outpt E&m [facility] 3 Advance Directives Directive Yes / No Effective Date File Name No Information Encounters Encounter Description Practice Location Reason(s) For Visit Diagnoses Date Provider Providers Copied on Encounter [facility] [address], [id number], [place] tel:[phone] [facility] No Information 3 Han Veloz. [address] [address] [facility], [address], [place], [place], [id number] , [place]. tel:[phone] Offic/outpt E&m [facility] [address], [id number], [place] tel:[phone] [facility] METAL DRILL OPERATOR c/o redness and irritation (chief complaint) Chalazion right lower eyelid 3 Han Veloz. [address], [address], [place], [place], [id number] , [place]. tel:[phone] Referring Provider: Roselia Rose, [address], [place], [address] . tel:[phone] Family History Family Member Type Diagnosis Age At Onset No Information Payers Payer name Insurance type Covered green party ID Adeline cui(s) [place] [employer] [id number] Social History Type Description Quantity Date Captured Comments Alcohol Use Details Unknown Caffeine Use Details Unknown Tobacco Use Status No Information Smoking Status No Information Sex Female Chief Complaint And Reason For Visit No Information Reason For Referral Reason For Referral No Information History Of Present Illness Encounter Date Complaint History Of Prese nt Illness METAL DRILL OPERATOR c/o redness and irritation Th e 62 year old female presents for evaluation of METAL DRILL OPERATOR c/o redness and irritation in the right eye. Pt. currently lives in [place] but is currently staying in [place] visiting her daughter. Pt. c/o possible stye [...]
--- NOTE | 2025-02-06 09:18 | PC.NURSE ---
Patient refuses pain meds at this time
== END 2025-02-06 09:50 | disposition home or self-care (01) ==
PROVIDERS: Emergency Provider Emergency Medicine
DX: S52.572A Other intraarticular fracture of lower end of left radius, initial encounter for closed fracture (principal); S52.612A Displaced fracture of left ulna styloid process, initial encounter for closed fracture; I10 Essential (primary) hypertension; W10.9XXA Fall (on) (from) unspecified stairs and steps, initial encounter
CPT/HCPCS: 29125; 73110; 99284; A4565

== ENCOUNTER 2025-04-08 15:28 | Outpatient (CLI) | payer MEDICARE, OTHER, SELFPAY ==
--- NOTE | ~2025-04-08 | XR_ITS ---
EXAMINATION: XR hand RT min 3V DATE: 04/08/2025 15:53 INDICATION: Right hand pain TECHNIQUE: 3 images of the right hand were obtained.. COMPARISON: None. FINDINGS: Mild to moderate joint space narrowing in the first carpometacarpal joint and first metacarpophalangeal joint. Soft tissue swelling about the right hand. [ No radiographic evidence for an acute fracture or dislocation.] Probable old small avulsion fracture of the ulnar styloid process. [ No radiopaque foreign body.] [ No sclerotic or destructive bone lesions.] IMPRESSION: 1. No fracture. 2. Mild to moderate joint space narrowing in the first carpometacarpal joint and first metacarpophalangeal joint. Soft tissue swelling about the right hand. If symptoms persist or worsen consider a short-term follow-up study or additional imaging for further assessment. Reviewed, dictated and finalized at location Q. IMPRESSION: 1. No fracture. 2. Mild to moderate joint space narrowing in the first carpometacarpal joint an d first metacarpophalangeal joint. Soft tissue swelling about the right hand. If symptoms persist or worsen consider a short-term follow-up study or addition al imaging for further assessment.
--- NOTE | ~2025-04-08 | XR_ITS ---
EXAMINATION: XR wrist LT min 3V, 04/08/2025 15:43 CDT HISTORY: S52.502A - Unspecified fracture of the lower end of left ... COMPARISON: No comparisons available. Findings: Nondisplaced fracture of the ulnar styloid process. There is an impacted fracture of the distal radius with intra-articular extension but no significant displacement. No significant degenerative changes. Soft tissue swelling. Impression: Fractures detailed above Reviewed, dictated and finalized at location A. Impression: Fractures detailed above
--- OUTSIDE RECORDS SUMMARY | 2025-04-08 18:22 | XMS_ITS | Clinical Summary ---
Author Organization [facility] [address] Address [address] [place] [address] Care Team Providers Care Network Support Technician Name Role Phone Toya Jin MD Primary Care Provider + Allergies Active Allergy Reactions Criticality Noted Date Comments Lisinopril Palpitations Low 10/25/2024 Penicillins Unknown 09/13/2024 Medications propranoloL (INDERAL) 10 mg tabletIndication s:Primary hypertension,Anx iety Take 1 Tablet (10 mg) by mouth 2 times daily. 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 Sexually transmitted infection 09/13/2024 Patellofemoral disorders, left knee 11/09/2022 Fall in shower 11/18/2021 Strain of muscle of right hip 11/18/2021 Encounters Date Type Department Care Team Description 03/04/2025 8:00 AM CDT Office Visit [facility] [address] [place] [address] Toya Jin MD Encounter for colorectal cancer screening (Primary Dx); Screening mammogram, encounter for; Welcome to Medicare preventive visit; Primary hypertension; Anxiety; Post-menopause; Postmenopausal bone loss; At risk for bone density loss 02/26/2025 External Device Data STL ABSTRACTION Provider, Abstract 02/06/2025 External Device Data STL ABSTRACTION Provider, Abstract 02/05/2025 External Device Data STL ABSTRACTION Provider, Abstract 01/15/2025 External Device Data STL ABSTRACTION Provider, Abstract from Last 3 Months Social History Tobacco Use Types Packs/Day Years Used Date Smoking Tobacco: Never Passive Smoke Exposure: Never Smokeless Tobacco: Never Tobacco Cessation:Counseling Given: No Alcohol Use Standard Drinks/Week Comments Never 0 (1 standard drink = 0.6 oz pur e alcohol) Comments No Sex and Gender Information Value Date Recorded Sex Assigned at Not on file Legal Sex Female 3:26 PM WEB SERVICES ARCHITECT Gender Identity Not on file Sexual Orientation Not on file Last Filed Vital Signs Vital Sign Reading Time Taken Comments Blood Pressure 170/100 03/04/2025 7:48 AM CDT Pulse 61 03/04/2025 7:48 AM CDT Temperature - - Respiratory Rate 18 03/04/2025 7:48 AM CDT Oxygen Saturation 97% 03/04/2025 7:48 AM CDT Inhaled Oxygen Concentration - - Weight 88.1 kg (194 lb 3.2 oz) 03/04/2025 7:48 A M CDT Height 175.3 cm (5' 9) 03/04/2025 7:48 AM CDT Body Mass Index 28.68 03/04/2025 7:48 AM CDT Plan of Treatment Upcoming Encounters Date Type Department Care Team (Late st Contact Info) Description 05/27/2025 8:00 AM WEB SERVICES ARCHITECT Appointment [facility] Radiology [address] [facility] [address] [place] [address] Toya Jin MD [address] [place] [address] 03/10/2026 7:30 AM CDT Office Visit [facility] [address] [place] [address] Toya Jin MD [address] [place] [address] Health Maintenance Due Date Last Done Comments Pre-Diabetes and Diabetes Screening 1959 FIT/ DNA Q 3 YEARS (AUTO ORDER) 1977 FIT/FOBT Q 1 YEAR (AUTO ORDER) 1977 FLEX SIG/CT COLONOGRAPHY Q 5 YEARS (AUTO ORDER) 1976 DTAP/TDAP/TD VACCINES (1 - Tdap) 1978 BREAST CANCER SCREENING 1999 COLORECTAL CANCER SCREENING (AUTO ORDER) 01/26/2004 COLORECTAL SCREENING 01/26/2004 Colorectal Cancer Screening (AUTO ORDER) 01/26/2004 Colorectal Cancer Screening 01/26/2004 FIT-DNA Q 3 years 01/26/2004 FIT/FOBT Q 1 year 01/26/2004 Flex Sig/CT Colonography Q 5 years 01/26/2004 PNEUMOCOCCAL VACCINE 50+ YEARS (1 of 1 - PCV) 01/26/20 09 ZOSTER VACCINE (1 of 2) 2009 OSTEOPOROSIS SCREENING 01/26/2024 INFLUENZA VACCINE (#1) 2025 Traditional Medicare (ACO) Annual Wellness Visit 03/0503/04/2025 RSV VACCINE (60+ or ) (1 - 1-dose 75+ series) 2034 Insurance MEDICARE PART A AND B [facility] Care Teams Network Support Technician Relationship Specialty Start Date End Date Toya Jin MD PCP - General Internal Medicine 03/04/25
--- OUTSIDE RECORDS SUMMARY | 2025-04-08 18:22 | XMS_ITS | Clinical Summary ---
Author Organization [address] Address [address] [place] [address] Care Team Providers Care Tile Erector Name Role Phone Toya Jin MD Primary [...] 2025 Fall Risk Assessment 10/02/2025 10/02/2024 Insurance [employer] [place] [address] [facility] Care Teams Tile Erector Relationship Specialty Start Date End Date Toya Jin MD [address] [place] [address] PCP - General Internal Medicine 10/02/24
--- OUTSIDE RECORDS SUMMARY | 2025-04-08 18:22 | XMS_ITS | Encounter Summary ---
Author Organization [facility] Address [address] [place] [address] Care Team Providers Care Brazer Production Line Name Role Phone Toya Jin MD Primary Care Provider + Reason for Visit * Reason Comments Provider Call Encounter Details Date Type Department Care Team (Late st Contact Info) Description 09/18/2024 Telephone [facility] Primary Care [place] [address] [address] , [address] [address] Toya Jin MD [address] [place] [address] Provider Call Social History Tobacco Use Types Packs/Day Years Used Date Smoking Tobacco: Never Passive Smoke Exposure: Never Smokeless Tobacco: Never Alcohol Use Standard Drinks/Week Comments Never 0 (1 standard drink = 0.6 oz pur e alcohol) Comments Unknown Sex and Gender Information Value Date Recorded Sex Assigned at Not on file Legal Sex Female 3:26 PM JIG AND FIXTURE BUILDER APPRENTICE Gender Identity Not on file Sexual Orientation Not on file documented as of this encounter Miscellaneous Notes * Telephone Encounter - Sheila Wagner - 09/18/2024 3:19 PM CST Faxed to provided number. AND FIXTURE BUILDER APPRENTICE * Telephone Encounter - Spike Gutierrez - 09/18/2024 1:01 PM CST Copied from CRM #[id number]. Topic: [id number] Call >> Sep 18, 2024 12:59 PM Spike Bellamy wrote: Caller is requesting to speak with Clinical Care Team. Caller Name: [facility] Callback Number: [phone] Clinician Type: Other healthcare professional not listed above Call Notes: Elizabeth called in because they need physical therapy order faxed over to them. Fax number: [phone] Is this addressing an immediate patient care need? No AND FIXTURE BUILDER APPRENTICE documented in this encounter Plan of Treatment Upcoming Encounters Date Type Department Care Team (Late st Contact Info) Description 05/27/2025 8:00 AM JIG AND FIXTURE BUILDER APPRENTICE Appointment [facility] S [facility] [address] [place] [address] Toya Jin MD [address] [place] [phone] 03/10/2026 7:30 AM CDT Office Visit [facility] Primary Care [address] [facility] [address] [place] [address] Toya Jin MD [address] [place] [phone] documented as of this encounter Visit Diagnoses Not on filedocumented in this encounter Care Teams Brazer Production Line Relationship Specialty Start Date End Date Toya Jin MD PCP - General Internal Medicine 03/04/25 documented as of this encounter
== END 2025-04-08 15:29 | disposition home or self-care (01) ==
PROVIDERS: Visit Provider Plastic Surgery
DX: M79.641 Pain in right hand (principal); S52.502A Unspecified fracture of the lower end of left radius, initial encounter for closed fracture; X58.XXXA Exposure to other specified factors, initial encounter
CPT/HCPCS: 73110; 73130